=== PATIENT | female | born 2000 | race Hispanic/Latino ===

== ENCOUNTER 2023-04-19 18:14 | Emergency (ER) | payer OTHER ==
[~2023-04-19] VITALS: Ht 157.5 cm; Wt 49.0 kg
[2023-04-19 19:25] VITALS: BP 128/78; PULSE 72; RESP 16; O2SAT 99
[2023-04-19] MEDS ORDERED: TETANUS/DIPHTHERIA TOXOID [ADULT] 0.5 ML VIAL IM ONE ×2 (19:35→20:00)
[2023-04-19 22:06] LABS: HIV 1&2 ANTIBODY Non-Reactive (Negative); HIV-1 p24 Antigen Non-Reactive (Negative)
[2023-04-20 16:03] LABS: HEPATITIS B CORE AB TOTAL Non-Reactive (Nonreactive); HEPATITIS B SURFACE ANTIBODY Positive (Reactive); HEPATITIS C ANTIBODY Non-Reactive (Nonreactive)
== END 2023-04-19 20:06 | disposition home or self-care (01) ==
LOC: EDH 18:14
DX: S61.231A Puncture wound without foreign body of left index finger without damage to nail, initial encounter (principal); R06.02 Shortness of breath; X58.XXXA Exposure to other specified factors, initial encounter; Y93.89 Activity, other specified; Y92.89 Other specified places as the place of occurrence of the external cause; Y99.8 Other external cause status
CPT/HCPCS: 36415; 86701; 86704; 86706; 86803; 87390; 90471; 90714